=== PATIENT | female | born 1980 | race Native Hawaiian/Other Pacific Islander ===

== ENCOUNTER 2018-01-18 16:55 | Emergency (ER) | payer OTHER ==
[2018-01-18 17:39] VITALS: BP 101/62; PULSE 74; RESP 18; TEMP 98.6; O2SAT 100
--- NOTE | 2018-01-18 18:42 | ED PDOC ---
HPI: Female Pain Time Seen by Provider: 01/18/18 17:45 Chief Complaint (Nursing): Female Genitourinary Chief Complaint (Provider): Female Genitourinary History Per: Patient History/Exam Limitations: no limitations Onset/Duration Of Symptoms: Days (x6 months) Current Symptoms Are (Timing): Still Present Additional Complaint(s): 37 y/o female with a PMHx of PTSD presents to the ED for evaluation of pelvic pain, onset 6 months ago. Patient described pain as constant and has been worsening since onset. Patient states pain gets slightly better when menstruating but is still constant. Patient reports that in the last 6 months, her menstruations have been heavier and has noticed intermittent spotting in between each cycle. Patient states in the last 4 days, since her most recent period began, her symptoms have been associated with headache, photophobia and an exacerbation of PTSD. Patient states she has not taken any medications for pain because she is admittedly "all natural" using holistic remedies. Denies fever and neck pain. Despite headache pt mainly concerned about her pelvic pain and wants to focus on evaluation for this. 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 - Family History Family History: States: No Known Family Hx - Social History Current smoker - smoking cessation education provided: No Alcohol: None Drugs: Denies - Home Medications Home Medications: Ambulatory Orders Medication Instructions Recorded Ibuprofen [Motrin Tab] 600 mg PO Q8 PRN #60 tab 01/18/18 - Allergies Allergies/Adverse Reactions: Allergies Allergy/AdvReac Type Severity Reaction Status Date / Time No Known Allergies Allergy Verified 01/18/18 17:33 Review of Systems ROS Statement: Except As Marked, All Systems Reviewed And Found Negative (as per HPI) Constitutional: Negative for: Fever Gastrointestinal: Positive for: Abdominal Pain Genitourinary Female: Positive for: Vaginal Bleeding (spotting in between cycles) Musculoskeletal: Negative for: Neck Pain Neurological: Positive for: Headache, Other (Photophobia) Psych: Positive for: Other (PTSD Exacerbation ) Physical Exam - Reviewed Nursing Documentation Reviewed: Yes Vital Signs Reviewed: Yes - Physical Exam Appears: Positive for: Uncomfortable, In Acute Distress Head Exam: Positive for: ATRAUMATIC, NORMOCEPHALIC Skin: Positive for: Warm, Dry Eye Exam: Positive for: EOMI, PERRL Neck: Positive for: Painless ROM, Supple Cardiovascular/Chest: Positive for: Regular Rate, Rhythm. Negative for: Murmur Respiratory: Positive for: Normal Breath Sounds. Negative for: Respiratory Distress Gastrointestinal/Abdominal: Positive for: Tenderness (Pelvic Tenderness to palpation). Negative for: Mass, Guarding, Rebound Pelvic Exam: Positive for: Other (Patient denies pelvic exam secondary to bleeding) Back: Negative for: L CVA Tenderness, R CVA Tenderness Extremity: Positive for: Normal ROM. Negative for: Deformity Lymphatic: Negative for: Adenopathy Neurologic/Psych: Positive for: Alert. Negative for: Motor/Sensory Deficits - Laboratory Results Result Diagrams: 01/18/18 19:00 01/18/18 19:00 - ECG O2 Sat by Pulse Oximetry: 100 (RA) Pulse Ox Interpretation: Normal Medical Decision Making Medical Decision Making: Time: 1826 Impression: Pelvic Pain Differentials include but not limited to fibroids, ovarian cysts, anemia, dysmenorrhea and metrorrhagia Plan: -- Type and Screen -- EKG -- CMP -- Magnesium -- Phosphorus -- ED Urine -- ED Urine Dipstick -- CBC with Differentials -- PTT -- Prothrombin Time -- IV Insertion --Labs with no emergently significant abnormalities US pelvis: Cervical cyst/mass. Ovarian cyst. Multiple fibroids. DW pt findings and urged further workup with global compensation manager. Mandatory follow up THIS WEEK with [facility]. Scribe Attestation: Documented by Jim Booth acting as a scribe for Hanna Patel MD. Provider Scribe Attestation: All medical record entries made by the Scribe were at my direction and personally dictated by me. I have reviewed the chart and agree that the record accurately reflects my personal performance of the history, physical exam, medical decision making, and the department course for this patient. I have also personally directed, reviewed, and agree with the discharge instructions and disposition. Disposition - Clinical Impression Clinical Impression: Fibroids, Ovarian cyst, Cervical cyst Counseled Patient/Family Regarding: Studies Performed, Diagnosis - Disposition Referrals: [facility] [Outside] [facility] [Outside] (CALL TOMORROW TO SETUP FOLLOW UP APPOINTMENT BY THE END OF THE WEEK. CALL EMPLOYMENT AGENCY MANAGER FOR ANY ADDITIONAL ASSISTANCE ARRANGING APPOINTMENT.) Disposition: Routine/Home Disposition Time: 22:24 Condition: STABLE Prescriptions: Ibuprofen [Motrin Tab] 600 mg PO Q8 PRN #60 tab PRN Reason: Pain, Moderate (4-7) Instructions: Uterine Fibroids, Ovarian Cyst (DC)
[2018-01-18 19:15] LABS: BASO # 0.1 K/uL (0.0-0.2); BASO % 0.9 % (0.0-2.0); EOS # 0.2 K/uL (0.0-0.7); EOS % 3.5 % (0.0-4.0); HEMOGLOBIN 11.7 g/dL (12.0-16.0); LYMPH % 33.9 % (20.0-40.0); MEAN CELL VOLUME 90.8 fl (81.0-99.0); MEAN CORPUSCULAR HEMOGLOBIN 30.3 pg (27.0-31.0); MEAN CORPUSCULAR HGB CONC 33.3 g/dL (33.0-37.0); MEAN PLATELET VOLUME 8.4 fl (7.2-11.7); MONO # 0.5 K/uL (0.0-0.8); MONO % 8.1 % (0.0-10.0); NEUT # 3.1 K/uL (1.8-7.0); NEUT % 53.6 % (50.0-75.0); RBC 3.87 Mil/uL (3.80-5.20); RED CELL DISTRIBUTION WIDTH 14.6 % (11.5-14.5); WHITE BLOOD COUNT 5.8 K/uL (4.8-10.8)
[2018-01-18 19:23] LABS: INR 0.9
[2018-01-18 19:36] LABS: ALB/GLOB RATIO 1.3 (1.0-2.1); ALBUMIN 4.2 g/dL (3.5-5.0); ALT/SGPT 24 U/L (9-52); AST/SGOT 17 U/L (14-36); BLOOD UREA NITROGEN 8 mg/dl (7-17); CALCIUM 9.2 mg/dL (8.4-10.2); GFR NON-AFRICAN AMERICAN > 60
--- NOTE | 2018-01-19 10:46 | US ---
Date of service: 01/18/2018 HISTORY: Pelvic pain, heavy bleeding. LMP 01/14/2018 COMPARISON: None available. TECHNIQUE: FINDINGS: UTERUS: Measures 5.4 x 7.2 x 9.9 cm. Posterior exophytic sub serosal fibroid 1.6 x 1.8 x 2 cm. Anterior sub serosal fibroid 9.2 x 6.6 x 12.3 cm. This is an exophytic fibroid. ENDOMETRIUM: Measures 4.4 mm in diameter. Unremarkable. CERVIX: Complex cystic structure in the cervix 1.6 x 1.8 x 1.9 cm with a central cystic component 8 x 6 mm. The mass is avascular. RIGHT OVARY: Measures 1.6 x 1.6 x 2.9 cm. No solid mass. Normal flow. Simple cyst 8 x 10 mm. LEFT OVARY: Measures 1.6 x 2.1 x 2.9 cm cm. No solid mass. Normal flow. FREE FLUID: No significant free fluid noted. OTHER FINDINGS: None. IMPRESSION: Myomatous uterus as described above. Complex solid/cystic mass in the cervix. Further evaluation recommended. Simple cyst right adnexa. Concordant results (preliminary interpretation) provided by [employer] [facility]. Procedure Completed: 20:59. Preliminary Report: Dictated and Authenticated: 22:05. Final Interpretation: 10:44.
--- NOTE | 2018-01-19 11:58 | CARD ---
APPROVED REPORT Date of service: 01/18/2018 EKG Measurement Heart [id number] <Conclusion> Sinus bradycardia Otherwise normal ECG
== END 2018-01-18 22:37 | disposition home or self-care (01) ==
LOC: H.ER 16:55
DX: D25.9 Leiomyoma of uterus, unspecified (principal); N83.209 Unspecified ovarian cyst, unspecified side; N88.8 Other specified noninflammatory disorders of cervix uteri; F43.10 Post-traumatic stress disorder, unspecified